=== PATIENT | male | born 1955 | race Caucasian/White ===

== ENCOUNTER 2016-04-05 15:01 | Emergency (ER) | payer BC ==
[2016-04-05] MEDS ORDERED: CEPHALEXIN500 M1 PO (15:43)
== END 2016-04-05 16:10 | disposition home or self-care (01) ==
LOC: ED 15:01
DX: S61.213A Laceration without foreign body of left middle finger without damage to nail, initial encounter (principal); Z23 Encounter for immunization; W31.2XXA Contact with powered woodworking and forming machines, initial encounter; Y92.018 Other place in single-family (private) house as the place of occurrence of the external cause
CPT/HCPCS: 90715

== ENCOUNTER → 2018-05-22 | Outpatient (CLI) | payer BC ==
[2016-04-05 16:11] VITALS: BP 106/64
[~2018-05-22] MED LIST: CEPHALEXIN500 M1 PO
[2018-05-22 10:50] LABS: EOS # 0.3 (0.04-0.40); HEMATOCRIT 48.7 % (42.0-52.0); HEMOGLOBIN 15.8 g/dL (13.5-18.0); LYMPH# 1.1 (1.50-4.00); MEAN CELL VOLUME 86 fl (78-100); MEAN CORPUSCULAR HEMOGLOBIN 28 pg (27-31); MEAN CORPUSCULAR HGB CONC 32 g/dL (33-37); MEAN PLATELET VOLUME 9.5 fl (7.4-10.4); MONO # 0.6 (0.20-0.80); NEU # 4.2 (1.40-6.50); PLATELET COUNT 194 K/mm3 (130-400); RED BLOOD COUNT 5.65 M/mm3 (4.20-5.60); RED CELL DISTRIBUTION WIDTH 13.6 % (11.5-14.5); WHITE BLOOD COUNT 6.2 K/mm3 (4.8-10.8)
[2018-05-22 11:02] LABS: ALBUMIN 3.9 g/dL (3.5-5.0); CALCIUM 9.4 mg/dL (8.4-10.2); POTASSIUM 4.3 mmol/L (3.6-5.0); TOTAL BILIRUBIN 0.6 mg/dL (0.2-1.3); TOTAL PROTEIN 6.9 g/dL (6.3-8.2)
== END ==
LOC: LAB 09:51
PROVIDERS: Internal Medicine
DX: Z00.00 Encounter for general adult medical examination without abnormal findings (principal)

== ENCOUNTER → 2019-11-11 | Outpatient (CLI) | payer MEDICARE ==
[2016-04-05 16:11] VITALS: BP 106/64
[2019-11-11 12:48] LABS: EOS # 0.3 (0.04-0.40); HEMATOCRIT 47.4 % (42.0-52.0); HEMOGLOBIN 15.6 g/dL (13.5-18.0); LYMPH# 1.3 (1.50-4.00); MEAN CELL VOLUME 86 fl (78-100); MEAN CORPUSCULAR HEMOGLOBIN 28 pg (27-31); MEAN CORPUSCULAR HGB CONC 33 g/dL (33-37); MEAN PLATELET VOLUME 9.1 fl (7.4-10.4); MONO # 0.5 (0.20-0.80); PLATELET COUNT 185 K/mm3 (130-400); RED BLOOD COUNT 5.52 M/mm3 (4.20-5.60); RED CELL DISTRIBUTION WIDTH 14.3 % (11.5-14.5); WHITE BLOOD COUNT 6.2 K/mm3 (4.8-10.8)
[2019-11-11 12:58] LABS: ALBUMIN 3.9 g/dL (3.4-4.8); POTASSIUM 4.6 mmol/L (3.5-5.1)
[2019-11-11 12:59] LABS: CALCIUM 9.1 mg/dL (8.3-10.5)
[2019-11-11 13:01] LABS: TOTAL PROTEIN 6.7 g/dL (6.2-8.1)
[2019-11-11 13:02] LABS: TOTAL BILIRUBIN 0.9 mg/dL (0.2-1.2)
== END ==
LOC: LAB 12:29
PROVIDERS: Internal Medicine
DX: Z12.5 Encounter for screening for malignant neoplasm of prostate (principal); N40.0 Benign prostatic hyperplasia without lower urinary tract symptoms; E78.2 Mixed hyperlipidemia; R73.9 Hyperglycemia, unspecified

== ENCOUNTER → 2020-03-11 | Outpatient (CLI) | payer MEDICARE ==
[2016-04-05 16:11] VITALS: BP 106/64
== END ==
LOC: LAB 08:48
DX: J02.9 Acute pharyngitis, unspecified (principal); Z20.828 Contact with and (suspected) exposure to other viral communicable diseases

== ENCOUNTER → 2020-09-30 | Outpatient (CLI) | payer MEDICARE ==
[2020-10-02 21:30] LABS: ANAPLASMA PHAGOCYTOPHILUM PCR Negative (Negative); EHRLICHIA CHAFFEENSIS AB PCR Negative (Negative); EHRLICHIA EWINGII/CANIS PCR Negative (Negative)
== END ==
LOC: LAB 18:47
PROVIDERS: Nurse Practitioner
DX: T14.8XXA Other injury of unspecified body region, initial encounter (principal); W57.XXXA Bitten or stung by nonvenomous insect and other nonvenomous arthropods, initial encounter

== ENCOUNTER → 2024-02-26 | Outpatient (CLI) | payer MEDICARE, OTHER ==
[~2024-02-26] MED LIST changes: +SILODOSIN4 MG PO
== END ==
LOC: LAB 13:59
DX: N40.1 Benign prostatic hyperplasia with lower urinary tract symptoms (principal)